=== PATIENT | male | born 1960 | race African-American/Black ===

== ENCOUNTER 2020-05-13 13:53 | Inpatient (IN) | payer BC, OTHER ==
--- NOTE | 2020-05-13 13:54 | PDOC ---
History of Present Illness - General Chief Complaint: Pain Stated Complaint: ABD PAIN Time Seen by Provider: 05/13/20 13:54 History Source: Patient Exam Limitations: No Limitations - History of Present Illness Initial Comments: 60 y/o male presenting to [place] [facility] complaining of three days of RLQ pain. Intermittent and nonmigratory for the first two days. Transiently improved last night before returning this morning and became more constant. Endorses nonbloody, nonbilious vomiting. Denies fevers, chills, chest pain, SOB, diarrhea, testicular pain/swelling, penile pain/swelling, hematuria, dysuria, or penile discharge. No h/o similar symptoms. Transient relief with OTC Tylenol. No h/o prior abdominal surgeries. Past History - Medical History Allergies/Adverse Reactions: Allergies Allergy/AdvReac Type Severity Reaction Status Date / Time No Known Allergies Allergy Verified 05/13/20 13:54 Home Medications: Ambulatory Orders NK [No Known Home Medication] 05/13/20 Other medical history: Denies past medical history - Surgical History Abdominal Surgery: No Review of Systems - Review of Systems Able to Perform ROS?: Yes Comments:: 10 point review of systems completed. All systems negative except as noted above. *Physical Exam - Physical Exam Vital signs and nursing notes reviewed. Constitutional- Well-developed, well-nourished, tall, thin adult male in no acute distress but obvious discomfort. Found semi-fowlers on hospital bed. A nswered all questions appropriately and completely. Head- Normocephalic. No obvious external signs of trauma. Eyes- Sclerae white. Neck- Supple, trachea is midline. Cardiovascular / Chest- Regular rate. Peripheral pulses- radial pulses full. Respiratory- Breathing unlabored. Speaking in multi-word responses without pausing. Equal chest rise and fall. Gastrointestinal- abdomen is tender in the RLQ with rebound and guarding. Globally, abdomen is soft and non-distended. No pulsatile masses. No overlying skin lesions or obvious signs of trauma. Neuro- Alert and oriented x4. Moving all four extremities spontaneously. No facial asymmetry. No slurred speech. Skin- Warm, dry, and intact. - No R or L CVA tenderness. Psych- Affect- appropriate. Mood- normal. Speech was non-labored, non- pressured. ED Treatment Course - LABORATORY CBC & Chemistry Diagram: 05/13/20 14:35 05/13/20 14:35 Medical Decision Making - Medical Decision Making 60 y/o male with RLQ pain. CTAP concerning for acute appendicitis without perforation. Received 3x 4mg Morphine for analgesia, Zosyn for abx coverage, and LR IVFB. Reviewed laboratory data. Mild leukocytosis without additional clinically significant derangement noted. Case discussed with Dr. Nelson, surgeon neon sign erector. Would like the pt transferred urgently to [facility] for further evaluation. Would like the hospitalist service to admit. 13 May 2020 16:43 PM Telephone discussion with ARTIE Pizano. Verbally appraised of the pts HPI, ED course, and current plan of management. Will admit pt to med/surg for attending Dr. Molina. Pt transferred to [facility] via [facility] without further incident. Case discussed with ED Attending Dr. Gamez. Zeyad Lyman M.D., PGY3 Emergency Medicine Residency Discharge - Discharge Information Problems reviewed: Yes Clinical Impression/Diagnosis: Acute appendicitis Qualifiers: Acute appendicitis type: with localized peritonitis Appendicitis gangrene presence: without gangrene Appendicitis perforation presence: without perforation Appendicitis abscess presence: unspecified whether abscess present Qualified Code(s): K35.30 - Acute appendicitis with localized peritonitis, without perforation or gangrene Condition: Stable - Admission Yes - Follow up/Referral - Patient Discharge Instructions - Post Discharge Activity
[2020-05-13] MEDS ORDERED: LACTATED RINGERS SOLUTION 1000 ML INFUS.BAG IV ONE (13:56)
[2020-05-13 14:31] LABS: EPITHELIAL CELLS RARE /hpf
[2020-05-13] MEDS ORDERED: morphine CARPU-JECT 4 MG/1 ML DISP.SYRIN IVPUSH ONE ×3 (14:50→18:03)
[2020-05-13 14:53] LABS: EOS % 0.5 % (0-4.5); HEMATOCRIT 46.2 % (35.4-49); HEMOGLOBIN 15.3 GM/dl (11.7-16.9); LYMPH % 10.8 % (8-40); MCH 32.1 pg (25.7-33.7); MCHC 33.1 g/dl (32.0-35.9); MEAN CELL VOLUME 96.9 fl (80-96); MEAN PLT VOLUME 8.6 fl (7.5-11.1); MONO % 6.6 % (3.8-10.2); NEUT % 78.1 % (42.8-82.8); PLATELET COUNT 319 K/MM3 (134-434); RBC 4.77 M/mm3 (4.00-5.60); RDW 12.3 % (11.9-15.9); WHITE BLOOD COUNT 14.9 K/mm3 (4.0-10.8)
[2020-05-13 14:57] LABS: ALBUMIN 4.2 g/dl (3.4-5.0); BILIRUBIN,TOTAL 0.6 mg/dl (0.2-1); CALCIUM 9.3 mg/dl (8.5-10); CREATININE 1.3 mg/dl (0.55-1.3); POTASSIUM 3.8 mmol/L (3.5-5.1); TOT PROT 7.8 g/dl (6.4-8.2)
[2020-05-13] MEDS ORDERED: morphine SULFATE 4 MG/ML VIAL ONE ×3 (14:58→18:04)
--- NOTE | 2020-05-13 15:00 | PDOC ---
Attending Attestation - Resident Resident Name: Zeyad Lyman - ED Attending Attestation I have performed the following: I have examined & evaluated the patient, The case was reviewed & discussed with the resident, I agree w/resident's findings & plan, Exceptions are as noted - HPI HPI: 05/13/20 14:56 60 yo M p/w RLQ pain, waxing and waning since yesterday. Never had before. Denies urianry complaints or h/o kidney stones. Says last night pain was relieved with OTC pain medications however returned this mornign and has gotten progressively worse. No testicular pain. Denies preceding trauma or increased heavy lifting. Denies n/v/d. No fevers. - Physicial Exam PE: 05/13/20 14:57 General: uncomfortable appearing Abdomen: soft, +RLQ ttp with mild voluntary guarding, no rebound, no masses Extremities: warm and well perfused, no LE edema - Medical Decision Making 05/13/20 14:58 60 yo M with possible appy vs. kidney stones vs. msk pain. Very unlikely testicular torsion as exam unremarkable and hx and exam more consistent with appy or kidney stone. Plan: -labs -urine -CT a/p -pain control as needed -reassess This clinical encounter is taking place during a federal and state health care emergency attributable to the novel Nicholson Virus pandemic. The Extraction Operator of the Department of Health and Human Services has declared, pursuant to the Public Health Service Act 319F-3 (42 U.S.C. 247d-6d), that a covered persons activities related to medical countermeasures against COVID-19 will be immune from liability under Federal and State law. 05/13/20 16:56 CT with findings consistent with acute appy. Surgery consulted. Will give zosyn and transfer to [facility] for admission for acute appendicitis. Discharge - Discharge Information Problems reviewed: Yes Clinical Impression/Diagnosis: Acute appendicitis Qualifiers: Acute appendicitis type: with localized peritonitis Appendicitis gangrene presence: without gangrene Appendicitis perforation presence: without perfor ation Appendicitis abscess presence: unspecified whether abscess present Qualified Code(s): K35.30 - Acute appendicitis with localized peritonitis, wi thout perforation or gangrene - Follow up/Referral - Patient Discharge Instructions - Post Discharge Activity
[2020-05-13] MEDS ORDERED: PIPERACILLIN/TAZOB 3.375 GM 3.375 GM in DEXTROSE 5%-WATER - 50 ML IVPB ONE (16:19)
[2020-05-13] MEDS ORDERED: PIPERACILLIN/TAZOB 3.375 GM 3.375 GM/50 ML BAG IVPB ONE (16:56)
[2020-05-13 17:30] LABS: ACTIVATED PTT 26.9 SECONDS (25.2-36.5)
[2020-05-13 17:34] LABS: INR 1.27 (0.82-1.09); PROTHROMBIN TIME (PATIENT) 14.2 SEC (10.2-13.0)
--- NOTE | 2020-05-13 17:56 | CONSULT ---
- Consultation REQUESTING PROVIDER: Bishop SWANSON CONSULT REQUEST: We have been asked to surgically evaluate this patient for acute appendicitis. PCP: HISTORY OF PRESENT ILLNESS: NITA who is a 60 y/oA/A/male who presented to the [facility] ED w/ c/o generalized to RLQ abdominal pain; pain is sharp and worse w/moving and better by lying still; he had nausea and vomiting and could not work yesterday; he came to the ED for evaluation; pain is sharp and unrelenting; he ahs no other GI/ c/o; a CT scan in the ED revealed acute appendicitis. PMHx: none PSHx: none Home Medications Medication Instructions Recorded NK [No Known Home Medication] 05/13/20 Allergies Allergy/AdvReac Type Severity Reaction Status Date / Time No Known Allergies Allergy Verified 05/13/20 13:54 REVIEW OF SYSTEMS: CONSTITUTIONAL: Absent: fever, chills, diaphoresis, generalized weakness, malaise, loss of appetite, weight change CARDIOVASCULAR: Absent: chest pain, syncope, palpitations, irregular heart rate, lightheadedness, peripheral edema RESPIRATORY: Absent: cough, shortness of breath, dyspnea with exertion, wheezing, stridor, hemoptysis GASTROINTESTINAL: Absent: abdominal pain, abdominal distension, nausea, vomiting, diarrhea, constipation, melena, hematochezia GENITOURINARY: Absent: dysuria, frequency, urgency, hesitancy, hematuria, flank pain, genital pain MUSCULOSKELETAL: Absent: myalgia, arthralgia, joint swelling, back pain, neck pain SKIN: Absent: rash, itching, pallor HEMATOLOGIC/IMMUNOLOGIC: Absent: easy bleeding, easy bruising, lymphadenopathy NEUROLOGIC: Absent: headache, focal weakness, paresthesias, dizziness, unsteady gait, seizure, mental status changes, bladder or bowel incontinence PSYCHIATRIC: Absent: anxiety, depression, suicidal or homicidal ideation, hallucinations. PHYSICAL EXAM: GENERAL: Awake, alert, and fully oriented, in no acute distress. HEAD: Normal with no signs of trauma. EYES: PERRL, sclera anicteric, conjunctiva clear. NECK: supple; no JVD; thyroid midline; no adenopathy ABDOMEN: Soft, tender over McBurneys point; Rovsings; psoas and obturator signs are present, not distended, normoactive bowel sounds, he has guarding and localized rebound, no masses. No organomegaly. No hernias. No scras; genitalia are normal. MUSCULOSKELETAL: Normal ROM at all joints. No bony deformities or tenderness. No CVA tenderness. UPPER EXTREMITIES: 2+ pulses, warm, well-perfused. No cyanosis. Cap refill <2 seconds. No peripheral edema. LOWER EXTREMITIES: 2+ pulses, warm, well-perfused. No calf tenderness. No peripheral edema. NEUROLOGICAL: Normal speech, gait not observed. PSYCH: Cooperative. Good eye contact. Appropriate mood and affect. SKIN: Warm, dry, normal turgor, no rashes or lesions noted. Vital Signs Temperature 99.1 F 05/13/20 13:53 Pulse Rate 97 H 05/13/20 13:53 Respiratory Rate 97 H 05/13/20 13:53 Blood Pressure 133/96 05/13/20 13:53 O2 Sat by Pulse Oximetry (%) 97 05/13/20 13:53 Lab Results WBC 14.9 K/mm3 (4.0-10.8) H 05/13/20 14:35 RBC 4.77 M/mm3 (4.00-5.60) 05/13/20 14:35 Hgb 15.3 GM/dl (11.7-16.9) 05/13/20 14:35 Hct 46.2 % (35.4-49) 05/13/20 14:35 MCV 96.9 fl (80-96) H 05/13/20 14:35 MCHC 33.1 g/dl (32.0-35.9) 05/13/20 14:35 RDW 12.3 % (11.9-15.9) 05/13/20 14:35 Plt Count 319 K/MM3 (134-434) 05/13/20 14:35 INR 1.27 (0.82-1.09) H 05/13/20 17:05 Sodium 136 mmol/L (136-145) 05/13/20 14:35 Potassium 3.8 mmol/L (3.5-5.1) 05/13/20 14:35 Chloride 101 mmol/L (98-107) 05/13/20 14:35 Carbon Dioxide 28 mmol/L (21-32) 05/13/20 14:35 Anion Gap 7 MMOL/L (8-16) L 05/13/20 14:35 BUN 14.0 mg/dl (7-18) 05/13/20 14:35 Creatinine 1.3 mg/dl (0.55-1.3) 05/13/20 14:35 Random Glucose 104 mg/dl (74-106) 05/13/20 14:35 Calcium 9.3 mg/dl (8.5-10) 05/13/20 14:35 CT a/p reviewed; images and report IMP: Acute appendicitis PLAN: Laparoscopic possible open appendectomy; r/b/t/a's d/w the patient and informed consent obtained. Brian Nelson MD FACS
[2020-05-13] MEDS ORDERED: DOCUSATE SODIUM 100 MG CAPSULE (FP) PO PRN (18:48)
[2020-05-13] MEDS ORDERED: BUPIVACAINE HCL/PF 0.5% (5MG/ML) 10 ML VIAL IJ ONE (20:36)
--- NOTE | 2020-05-13 20:58 | OP ---
Operative Note - Note: Operative Date: 05/13/20 Pre-Operative Diagnosis: acute appendicitis Operation: laparoscopic appendectomy Findings: acute suppurative appendicitis Post-Operative Diagnosis: Same as Pre-op Surgeon: Brian Nelson Anesthesiologist/SUPERVISOR PROP MAKING: Rambo Chapa Anesthesia: General Specimens Removed: appendix Estimated Blood Loss (mls): 10
[2020-05-13] MEDS ORDERED: MORPHINE SULFATE 2 MG/ML VIAL IVPUSH PRN (21:00)
[2020-05-13] MEDS ORDERED: LACTATED RINGERS SOLUTION 1,000 ML/1,000 ML INFUS.BAG IV SCH (21:00)
[2020-05-13] MEDS ORDERED: ACETAMINOPHEN INJECTION 100 ML IVPB ONE (21:21)
[2020-05-13] MEDS ORDERED: ACETAMINOPHEN 1000 MG/100 ML VIAL (NON FORMULARY) IVPB ONE ×2 (21:25→22:36)
[2020-05-13] MEDS ORDERED: SENNOSIDES 8.6MG TABLET (FP) PO PRN (22:00)
[2020-05-13] MEDS ORDERED: ONDANSETRON 4 MG/2 ML VIAL IVPUSH PRN (22:36)
[2020-05-14 00:33] VITALS: BMI 24.0
--- NOTE | 2020-05-14 01:27 | PN ---
Teaching Attending Note Name of Resident: Jair Alfaro ATTENDING PHYSICIAN STATEMENT I saw and evaluated the patient. I reviewed the resident's note and discussed the case with the resident. I agree with the resident's findings and plan as documented. SUBJECTIVE: Patient is a 60 year old man with no reported PMH transferred from [facility] where he had presented with RLQ abdominal pain for 3 days and found to have appendicitis. He is now recovering from laparoscopic appendectomy. Reported nonbloody, nonbilious vomiting at [facility] but denied fevers, chills, chest pain, SOB, diarrhea, testicular pain/swelling, penile pain/swelling, hematuria, dysuria, or penile discharge. Denies alcohol, tobacco or illicit drug use. No sick contacts or recent travels. Family history is unremarkable. OBJECTIVE: Vital Signs Period Temp Pulse Resp BP Sys/Pablo Pulse Ox Last 24 Hr 99.0 F-99.3 F 70-97 14-20 109-161/57-96 97-100 HEENT: No Jaundice, eye redness or discharge, PERRLA, EOMI. Normocephalic, atraumatic. External ears are normal and hearing is grossly intact. No nasal discharge. Neck: Supple, nontender. No palpable adenopathy or thyromegaly. No JVD Chest: Good effort. Clear to auscultation and percussion. Heart: Regular. No S3, rub or murmur Abdomen: Not distended, soft, laparoscopic wound site dressed and no HSM. No rebound or guarding. Normal bowel sounds. Ext: Peripheral pulses intact. No leg edema. Skin: Warm and dry. No petechiae, rash or ecchymosis. Neuro: Alert. Oriented x3. CN 2-12 grossly intact. Sensation grossly intact in all four extremities and DTR are symmetric. Psych: Appropriate mood and affect. Good insight. Current Medications Generic Name Dose Route Start Last Admin Trade Name Freq PRN Reason Stop Dose Admin Fentanyl 50 mcg 05/13/20 22:36 Sublimaze Injection - IVPUSH [id number] PRN PAIN-PACU ORDER X 4 DOSES ONLY Lactated Ringer's 1,000 ml in 1,000 mls @ 100 mls/hr 05/13/20 21:00 05/13/20 21:00 Lactated Ringers Solution IV 100 mls/hr ASDIR JUSTIN Administration Morphine Sulfate 4 mg 05/13/20 21:00 Morphine Sulfate IVPUSH Q4H PRN PAIN LEVEL 6-10 Ondansetron HCl 4 mg 05/13/20 22:36 Zofran Injection IVPUSH Q6H PRN NAUSEA AND/OR VOMITING Oxycodone HCl 5 mg 05/13/20 21:01 Roxicodone - PO Q6H PRN PAIN LEVEL 4 - 6 Home Medications Medication Instructions Recorded NK [No Known Home Medication] 05/13/20 Abnormal Lab Results 05/13/20 05/13/20 05/13/20 14:35 14:35 17:05 WBC 14.9 H MCV 96.9 H Basophils % 4.0 H PT with INR 14.2 H INR 1.27 H Anion Gap 7 L ASSESSMENT AND PLAN: 1. Appendicitis/Postop Day #0 for Laparoscopic appendectomy - Patient got one dose of IV Zosyn 3.375 gm at [facility]. Will continue postop care according to the Surgeons's instructions, encourage incentive spirometry, use IV Morphine for pain control, keep NPO, give IV LR and monitor urine output. Will get baseline EKG, BMP and CBC in the morning. Monitor BP closely. 2. DVT prophylaxis - SCD. 3. Advance directives - Full code
--- NOTE | 2020-05-14 07:11 | HP ---
CHIEF COMPLAINT: RLQ pain PCP: HISTORY OF PRESENT ILLNESS: This is a 60 year old male with no PMH, presented to [place] ER with 5 days of RLQ abdominal pain. The pain was sudden in onset, waxing and waning, 10/10 in intensity and sharp in nature. He was found to have avidence of appendicitis on CT, surgery was consulted, and he subsequently underwent laparoscopic appendectomy overnight after being transferred to [facility]. ER course was notable for: (1) CT: appendicitis without abscess, hemangioma left lobe liver (2) WBC 14.9 Recent Travel: denies PAST MEDICAL HISTORY: denies PAST SURGICAL HISTORY: denies Social History: Smoking: denies Alcohol:denies Drugs: denies Allergies No Known Allergies Allergy (Verified 05/13/20 13:54) HOME MEDICATIONS: Home Medications Medication Instructions Recorded NK [No Known Home Medication] 05/13/20 REVIEW OF SYSTEMS CONSTITUTIONAL: Absent: fever, chills, diaphoresis, generalized weakness, malaise, loss of appetite, weight change HEENT: Absent: rhinorrhea, nasal congestion, throat pain, throat swelling, difficulty swallowing, mouth swelling, ear pain, eye pain, visual changes CARDIOVASCULAR: Absent: chest pain, syncope, palpitations, irregular heart rate, lightheadedness, peripheral edema RESPIRATORY: Absent: cough, shortness of breath, dyspnea with exertion, orthopnea, wheezing, stridor, hemoptysis GASTROINTESTINAL: Absent: abdominal pain, abdominal distension, nausea, vomiting, diarrhea, constipation, melena, hematochezia GENITOURINARY: Absent: dysuria, frequency, urgency, hesitancy, hematuria, flank pain, genital pain MUSCULOSKELETAL: Absent: myalgia, arthralgia, joint swelling, back pain, neck pain SKIN: Absent: rash, itching, pallor HEMATOLOGIC/IMMUNOLOGIC: Absent: easy bleeding, easy bruising, lymphadenopathy, frequent infections ENDOCRINE: Absent: unexplained weight gain, unexplained weight loss, heat intolerance, cold intolerance NEUROLOGIC: Absent: headache, focal weakness or paresthesias, dizziness, unsteady gait, seizure, mental status changes, bladder or bowel incontinence PSYCHIATRIC: Absent: anxiety, depression, suicidal or homicidal ideation, hallucinations. PHYSICAL EXAMINATION Vital Signs - 24 hr 05/13/20 05/13/20 05/13/20 13:53 16:30 21:06 Temperature 99.1 F 99.3 F 99.3 F Pulse Rate 97 H 95 H Pulse Rate [ 80 Left] Respiratory 20 20 16 Rate Blood Pressure 133/96 161/93 Blood Pressure 109/58 L [Right Arm] O2 Sat by Pulse 97 97 98 Oximetry (%) 05/13/20 05/13/20 05/13/20 21:25 21:40 21:55 Temperature Pulse Rate 82 78 72 Pulse Rate [ Left] Respiratory 16 16 14 Rate Blood Pressure 157/87 139/82 113/64 Blood Pressure [Right Arm] O2 Sat by Pulse 100 98 98 Oximetry (%) 05/13/20 05/13/20 05/13/20 22:10 22:25 23:00 Temperature 99.3 F 99.0 F Pulse Rate 72 70 77 Pulse Rate [ Left] Respiratory 16 16 18 Rate Blood Pressure 111/63 109/57 L 121/78 Blood Pressure [Right Arm] O2 Sat by Pulse 99 98 98 Oximetry (%) 05/13/20 05/13/20 05/14/20 23:35 23:40 02:05 Temperature 99.0 F 98.7 F Pulse Rate 77 76 Pulse Rate [ Left] Respiratory 18 18 Rate Blood Pressure 121/77 124/68 Blood Pressure [Right Arm] O2 Sat by Pulse 98 98 98 Oximetry (%) 05/14/20 06:32 Temperature 97.8 F Pulse Rate 87 Pulse Rate [ Left] Respiratory 18 Rate Blood Pressure 115/63 Blood Pressure [Right Arm] O2 Sat by Pulse 97 Oximetry (%) GENERAL: AOx3, slightly drowsy but talkative and cooperative, wants to walk around HEAD: Normal with no signs of trauma. EYES: Pupils equal, round and reactive to light, extraocular movements intact, sclera anicteric, conjunctiva clear. No lid lag. EARS, NOSE, THROAT: Ears normal, nares patent, oropharynx clear without exudates. Moist mucous membranes. NECK: Normal range of motion, supple without lymphadenopathy, JVD, or masses. LUNGS: Breath sounds equal, clear to auscultation bilaterally. No wheezes, and no crackles. No accessory muscle use. HEART: Regular rate and rhythm, normal S1 and S2 without murmur, rub or gallop. ABDOMEN: dressing over incision site, RLQ, no surrounding erythema or discharge noted MUSCULOSKELETAL: Normal range of motion at all joints. No bony deformities or tenderness. No CVA tenderness. UPPER EXTREMITIES: 2+ pulses, warm, well-perfused. No cyanosis. No clubbing. No peripheral edema. LOWER EXTREMITIES: 2+ pulses, warm, well-perfused. No calf tenderness. No peripheral edema. NEUROLOGICAL: Cranial nerves II-XII intact. Normal speech. Normal gait. PSYCHIATRIC: Cooperative. Good eye contact. Appropriate mood and affect. SKIN: Warm, dry, normal turgor, no rashes or lesions noted, normal capillary refill. Laboratory Results - last 24 hr 05/13/20 05/13/20 05/13/20 14:04 14:14 14:35 WBC 14.9 H RBC 4.77 Hgb 15.3 Hct 46.2 MCV 96.9 H MCH 32.1 MCHC 33.1 RDW 12.3 Plt Count 319 MPV 8.6 Absolute Neuts (auto) 11.6 Neutrophils % 78.1 Lymphocytes % 10.8 Monocytes % 6.6 Eosinophils % 0.5 Basophils % 4.0 H PT with INR INR PTT (Actin FS) Sodium Potassium Chloride Carbon Dioxide Anion Gap BUN Creatinine Est GFR (CKD-EPI)AfAm Est GFR (CKD-EPI)NonAf Random Glucose Calcium Total Bilirubin AST ALT Alkaline Phosphatase Creatine Kinase 181 Creatine Kinase Index 0.6 CK-MB (CK-2) 1.2 Total Protein Albumin Lipase Urine Color Yellow Urine Appearance Clear Urine pH 7.0 Urine Protein Negative Urine Glucose (UA) Negative Urine Ketones Negative Urine Blood Trace-intact Urine Nitrite Negative Urine Bilirubin Negative Urine Urobilinogen 0.2 Ur Leukocyte Esterase Negative Urine RBC 0-2 Ur Transition Epith Cell Rare Blood Type Antibody Screen 05/13/20 05/13/20 05/13/20 14:35 17:04 17:05 WBC RBC Hgb Hct MCV MCH MCHC RDW Plt Count MPV Absolute Neuts (auto) Neutrophils % Lymphocytes % Monocytes % Eosinophils % Basophils % PT with INR 14.2 H INR 1.27 H PTT (Actin FS) 26.9 Sodium 136 Potassium 3.8 Chloride 101 Carbon Dioxide 28 Anion Gap 7 L BUN 14.0 Creatinine 1.3 Est GFR (CKD-EPI)AfAm 69.71 Est GFR (CKD-EPI)NonAf 60.14 Random Glucose 104 Calcium 9.3 Total Bilirubin 0.6 AST 28 ALT 24 Alkaline Phosphatase 57 Creatine Kinase Creatine Kinase Index CK-MB (CK-2) Total Protein 7.8 Albumin 4.2 Lipase 90 Urine Color Urine Appearance Urine pH Urine Protein Urine Glucose (UA) Urine Ketones Urine Blood Urine Nitrite Urine Bilirubin Urine Urobilinogen Ur Leukocyte Esterase Urine RBC Ur Transition Epith Cell Blood Type O POSITIVE Antibody Screen Negative ASSESSMENT/PLAN: 60 year old male with no PMH, presented to [place] ER with 5 days of RLQ abdominal pain, found to have avidence of appendicitis on CT, subsequently underwent laparoscopic appendectomy overnight after being transferred to [facility]. #Appendicitis - POD# 0 Lap Appe (Dr. Nelson) - Surgery following, will await - Received Zosyn pre-op, will hold off on abx for now and monitor WBC, temp, signs of sepsis - Incentive spirometer - Clears ordered for AM, if tolerates may padvance diet - Morphine IV for pain control #FEN - Clear liquids #Prophylaxis - Started on Lovenox #Dispo - Monitor in MS ATTENDING PHYSICIAN STATEMENT I saw and evaluated the patient. I reviewed the resident's note and discussed the case with the resident. I agree with the resident's findings and plan as documented. SUBJECTIVE: OBJECTIVE: ASSESSMENT AND PLAN:
--- NOTE | 2020-05-14 08:12 | PN ---
Progress Note (short form) - Note Progress Note: Anesthesia Post op/Pain Pt seen and examined S:Alert and awake, comfortable O: Vital Signs Temperature 97.8 F 05/14/20 06:32 Pulse Rate 87 05/14/20 06:32 Respiratory Rate 18 05/14/20 06:32 Blood Pressure 115/63 05/14/20 06:32 O2 Sat by Pulse Oximetry (%) 97 05/14/20 06:32 A/P: Current Active Problems Acute appendicitis (Acute) s/p lap appendectomy Doing well post op Continue current care Ignacio Clement MD
[2020-05-14 08:18] LABS: HEMATOCRIT 40.7 % (35.4-49); HEMOGLOBIN 13.6 GM/dL (11.7-16.9); MCH 32.1 pg (25.7-33.7); MCHC 33.5 g/dl (32.0-35.9); MEAN CELL VOLUME 95.9 fl (80-96); MEAN PLT VOLUME 9.2 fl (7.5-11.1); PLATELET COUNT 250 K/MM3 (134-434); RBC 4.24 M/mm3 (4.00-5.60)
[2020-05-14 08:25] LABS: ALBUMIN 3.2 g/dl (3.4-5.0); BILIRUBIN,TOTAL 0.7 mg/dL (0.2-1); CALCIUM 8.9 mg/dL (8.5-10.1); CREATININE 1.1 mg/dL (0.55-1.3); MAGNESIUM 2.2 mg/dL (1.8-2.4); PHOSPHOROUS 4.1 mg/dL (2.5-4.9); POTASSIUM 4.5 mmol/L (3.5-5.1)
--- NOTE | 2020-05-14 09:37 | OP ---
DATE OF OPERATION: 05/14/2020 PREOPERATIVE DIAGNOSIS: Acute appendicitis. POSTOPERATIVE DIAGNOSIS: Acute appendicitis. PROCEDURE: Laparoscopic appendectomy. SURGEON: Brian Nelson MD. ARCHITECTURAL DRAFTSPERSON: ANESTHESIA: General. OPERATIVE FINDINGS: Acute suppurative appendicitis. The rest of the findings were unremarkable. PROCEDURE: The patient was placed on the operating room table in the supine position, and after induction of general anesthesia and placement of a Villarreal catheter, the patient's abdomen was prepped with ChloraPrep and draped in sterile fashion. A timeout was taken, and pneumoperitoneum established at the umbilicus, using a Veress needle to an intraabdominal pressure of 15 mmHg. Next, a 12-mm suprapubic port just to the left of the midline was placed without incident, and then a left lower quadrant 5-mm port. The patient was placed in the head-down position and rotated to the left and laparoscopy carried out and previously noted findings were observed. The appendix was grasped and using blunt dissection and the LigaSure device the cecum and adhesions were lysed from the lateral abdominal wall. The mesoappendix was serially divided using the LigaSure device as well. Once the base of the appendix was identified at the confluence of the 3 tenia on the cecum, a 60-mm Endo TAMIA purple load stapler was placed across the base of the appendix and fired. The appendix was then placed in an EndoCatch and brought up to the abdominal wall at the 12-mm port site. The suture line was inspected for hemostasis and/or leak, and there was found to be none. The appendix was then removed with the 12-mm port, and sent the pathological examination. The 12-mm port was replaced and pneumoperitoneum reestablished, and hemostasis checked for and noted to be good. At this point, the two 5-mm ports and the 12-mm port were removed, and the pneumoperitoneum evacuated. The defect at the suprapubic port site was closed with a single [id number] 0 Vicryl suture, and the port sites were injected with 0.5% Marcaine. The skin edges were reapproximated with interrupted 4-0 Biosyn followed by Steri-Strips and Band-Aid dressings. The patient was then aroused from anesthesia and prior to this the Villarreal catheter removed, and the patient transferred to post anesthesia care unit in stable condition awake and alert. Estimated blood loss: 30 mL, Replacements: crystalloid Drains: none Specimen: appendix to pathology. I, Brian Nelson, was physically present in the operating room from the time the patient was placed on the operating room table until patient was transferred to the postanesthesia care unit in my accompaniment. MD SHI Ramirez/[id number] [facility]
[2020-05-14] MEDS: ENOXAPARIN NA (PORCINE) 40 MG/0.4 ML DISP.SYRIN SQ SCH (09:49)
[2020-05-14] MEDS: oxyCODONE HCL 5 MG TABLET PO PRN (09:55)
[2020-05-14 10:36] LABS: ANISOCYTOSIS 0; MACROCYTOSIS 0; PLATELET ESTIMATE NORMAL
--- NOTE | 2020-05-14 10:37 | PN ---
Progress Note (short form) - Note Progress Note: Attending Surgeon POD #1 Feels better; tolerated clear liquids and voided VSS AF T max 99.3 abdo-soft; port site tenderness; port site dressings c/d/i/; o/w normal. WBC 12.( IMP: doing well post op PLAN: Advance diet trend WBC and temperature; anticipate d/c 05/15/2020. Brian Nelson MD FACS
[2020-05-14] MEDS ORDERED: LACTATED RINGERS SOLUTION 1,000 ML/1,000 ML INFUS.BAG IV SCH (10:40)
[2020-05-15] MEDS: oxyCODONE HCL 5 MG TABLET PO PRN ×2 (00:10→10:59)
[2020-05-15 08:12] LABS: BASO % 0.4 % (0-2.0); EOS % 1.4 % (0-4.5); HEMOGLOBIN 14.2 GM/dL (11.7-16.9); LYMPH % 36.2 % (8-40); MCH 32.4 pg (25.7-33.7); MCHC 33.7 g/dl (32.0-35.9); MEAN CELL VOLUME 96.2 fl (80-96); MEAN PLT VOLUME 8.5 fl (7.5-11.1); MONO % 7.3 % (3.8-10.2); NEUT % 54.7 % (42.8-82.8); PLATELET COUNT 264 K/MM3 (134-434); RBC 4.37 M/mm3 (4.00-5.60); RDW 13.1 % (11.9-15.9); WHITE BLOOD COUNT 9.6 K/mm3 (4.0-10.0)
--- NOTE | 2020-05-15 10:27 | PN ---
Physical Exam: SUBJECTIVE: Patient seen and examined 05/15/2020: Pt feels well, tolerated dinner last night, no significant abdpminal pain, nausea or vomiting passing flatus, ambulating and voiding fine OBJECTIVE: Vital Signs Period Temp Pulse Resp BP Sys/Pablo Pulse Ox Last 24 Hr 98.4 F-98.7 F 73-85 16-18 127-131/73-88 96-97 GENERAL: The patient is awake, alert, and fully oriented, in no acute distress. HEAD: Normal with no signs of trauma. EYES: extraocular movements intact, sclera anicteric, conjunctiva clear. No ptosis. ENT: Ears normal, nares patent, oropharynx clear without exudates, moist mucous membranes. NECK: Trachea midline, full range of motion, supple. LUNGS: Breath sounds equal, clear to auscultation bilaterally, no wheezes, no crackles, no accessory muscle use. HEART: Regular rate and rhythm, S1, S2 without murmur, rub or gallop. ABDOMEN: Soft, mild tenderness to palpation nondistended, hypoactive bowel sounds, no guarding, no rebound, no hepatosplenomegaly, no masses. surgical dressings c/d/i EXTREMITIES: 2+ pulses, warm, well-perfused, no edema. NEUROLOGICAL: Cranial nerves II through XII grossly intact. Normal speech, gait not observed. PSYCH: Normal mood, normal affect. SKIN: Warm, dry, normal turgor, no rashes or lesions noted Laboratory Results - last 24 hr 05/13/20 05/14/20 05/15/20 17:04 07:34 07:56 WBC 9.6 RBC 4.37 Hgb 14.2 Hct 42.0 MCV 96.2 H MCH 32.4 MCHC 33.7 RDW 13.1 Plt Count 264 MPV 8.5 Absolute Neuts (auto) 5.2 Neutrophils % 54.7 Neutrophils % (Manual) 84.3 H Band Neutrophils % 0.0 Lymphocytes % 36.2 Lymphocytes % (Manual) 11.8 Monocytes % 7.3 Monocytes % (Manual) 4 Eosinophils % 1.4 Eosinophils % (Manual) 0.0 Basophils % 0.4 Basophils % (Manual) 0.0 Myelocytes % (Man) 0 Promyelocytes % (Man) 0 Blast Cells % (Manual) 0 Nucleated RBC % 0 0 Metamyelocytes 0 Hypochromia 0 Platelet Estimate Normal Polychromasia 0 Poikilocytosis 0 Anisocytosis 0 Microcytosis 0 Macrocytosis 0 COVID-19 (BENNY) Not detected Active Medications Generic Name Dose Route Start Last Admin Trade Name Freq PRN Reason Stop Dose Admin Enoxaparin Sodium 40 mg 05/14/20 10:00 05/14/20 09:49 Lovenox - SQ 40 mg DAILY JUSTIN Administration Fentanyl 50 mcg 05/13/20 22:36 Sublimaze Injection - IVPUSH [id number] PRN PAIN-PACU ORDER X 4 DOSES ONLY Morphine Sulfate 4 mg 05/13/20 21:00 Morphine Sulfate IVPUSH Q4H PRN PAIN LEVEL 6-10 Ondansetron HCl 4 mg 05/13/20 22:36 Zofran Injection IVPUSH Q6H PRN NAUSEA AND/OR VOMITING Oxycodone HCl 5 mg 05/13/20 21:01 05/15/20 00:10 Roxicodone - PO 5 mg Q6H PRN Administration PAIN LEVEL 4 - 6 ASSESSMENT/PLAN: 60 y/o male admitted with appendicitis, s/p appy *POD #2 Doing well afebrile екатерина po, voiding fine ambulating pain is controlled *leukocytosis - likely stress response/appendicitis post op now normal no fevers *dvt proph y- venodynes, lovenox DC planning Problem List - Problems (1) Acute appendicitis Code(s): K35.80 - UNSPECIFIED ACUTE APPENDICITIS Qualifiers: Acute appendicitis type: with localized peritonitis Appendicitis gangrene presence: without gangrene Appendicitis perforation presence: without perforation Appendicitis abscess presence: unspecified whether abscess present Qualified Code(s): K35.30 - Acute appendicitis with localized peritonitis, without perforation or gangrene Visit type - Emergency Visit Emergency Visit: Yes ED Registration Date: 05/14/20 Care time: The patient presented to the Emergency Department on the above date and was hospitalized for further evaluation of their emergent condition. - New Patient This patient is new to me today: Yes Date on this admission: 05/15/20 - Critical Care Critical Care patient: No - Discharge Referral Referred to [facility] Med P.C.: No
--- NOTE | 2020-05-15 10:41 | PN ---
Progress Note (short form) - Note Progress Note: Attending Surgeon POD#2 No c/o; tolerating diet VSS AF abdo-soft; non tender e/f port sites; dressings c/d/i; o/w negative. WBC-nl IMP: doing well PLAN: D/c to office f/u. Brian Nelson MD FACS
[2020-05-15] MEDS: ENOXAPARIN NA (PORCINE) 40 MG/0.4 ML DISP.SYRIN SQ SCH (10:59)
[2020-05-15 13:29] VITALS: BP 131/84; PULSE 76; TEMP 98.6
--- NOTE | 2020-05-15 18:59 | EKG ---
Test Reason : Blood Pressure : / mmHG Vent. Rate : 077 BPM Atrial Rate : 077 BPM P-R Int : 164 ms QRS Dur : 082 ms QT Int : 370 ms P-R-T Axes : 077 006 020 degrees QTc Int : 418 ms NORMAL SINUS RHYTHM LEFT ATRIAL ENLARGEMENT LEFT VENTRICULAR HYPERTROPHY ABNORMAL ECG Confirmed by MD SELMA, SHAE ([id number]) on 05/15/2020 6:59:22 PM Referred By: MD RODRIGUEZ Confirmed By:SHAE HAHN MD
== END 2020-05-15 17:14 | disposition home or self-care (01) | DRG 343 ==
LOC: FER 13:53 → J2C 19:10 → UNDOADMIN 19:10 → JASUSAT 19:23 → J6S 22:58 → JASUSAT 05-14 05:58
PROVIDERS: ADMIT Internal Medicine; ATTEND Internal Medicine
PROC: 0DTJ4ZZ Resection of Appendix, Percutaneous Endoscopic Approach (ICD-10-PCS; principal; 2020-05-14)
DX: K35.890 Other acute appendicitis without perforation or gangrene (principal); D18.09 Hemangioma of other sites; D72.829 Elevated white blood cell count, unspecified
CPT/HCPCS: 36415; 71045-TC-FY; 74177-TC; 80053; 81003; 81015; 82550; 82553; 83690; 83735; 84100; 85025; 85027; 85610; 85730; 86850; 86900; 86901; 87086; 93005; 94760; 99285-25; J0131; U0003